=== PATIENT | female | born 2000 | race Caucasian/White ===

== ENCOUNTER 2024-09-24 19:56 | Emergency (ER) | payer OTHER, SELFPAY ==
[2024-09-24] MEDS ORDERED: diphenhydrAMINE 50 MG/ML VIAL ONE (20:05)
[2024-09-24] MEDS ORDERED: Famotidine/PF 20 mg/2ml Vial ONE (20:05)
[2024-09-24] MEDS ORDERED: Dexamethasone 10 MG/ML VIAL ONE (20:05)
== END 2024-09-24 22:08 | disposition home or self-care (01) ==
LOC: CSHERS 19:56
DX: T78.02XA Anaphylactic reaction due to shellfish (crustaceans), initial encounter (principal)
CPT/HCPCS: 94640; 96372; 96374; 96375; J0169; J1100; J1200; J1308; J7620